=== PATIENT | male | born 1980 | race Caucasian/White ===

== ENCOUNTER 2021-04-30 21:49 | Emergency (ER) | payer MEDICAID ==
[~2021-04-30] VITALS: Ht 167.6 cm; Wt 60.0 kg
[2021-04-30] MEDS ORDERED: LORazepam 2 MG/ML, 1ML ONE (21:58)
[2021-04-30] MEDS ORDERED: DIPHENHYDRAMINE 50 MG/ML, 1ML ONE (21:58)
[2021-04-30] MEDS ORDERED: HALOPERIDOL 5 MG/ML ONE (21:58)
[2021-04-30] MEDS ORDERED: HALOPERIDOL 5 MG/ML IM ONE (22:00)
[2021-04-30] MEDS ORDERED: PLEASE ENTER ALLERGIES MC SCH (22:00)
[2021-04-30] MEDS ORDERED: PLEASE ENTER HEIGHT AND WEIGHT MC SCH (22:00)
[2021-04-30] MEDS ORDERED: DIPHENHYDRAMINE 50 MG/ML, 1ML IM ONE (22:00)
[2021-04-30] MEDS ORDERED: LORazepam 2 MG/ML, 1ML IM ONE (22:00)
[2021-04-30 22:07] LABS: BASOPHILS % (AUTO) 0 % (0-1); EOSINOPHILS % (AUTO) 0 % (1-7); LYMPHOCYTES % (AUTO) 15 % (22-44); MEAN CORPUSCULAR HEMOGLOBIN 32.6 pg (27.5-34.5); MEAN CORPUSCULAR HGB CONC 33.7 g/dL (33.2-36.2); MEAN PLATELET VOLUME 7.2 fL (7.4-10.4); MONOCYTES % (AUTO) 10 % (2-9); NEUTROPHILS % (AUTO) 75 % (42-75); PLATELET COUNT 656 x10^3/uL (130-400); RED BLOOD COUNT 4.08 x10^6/uL (4.38-5.82); RED CELL DISTRIBUTION WIDTH 14.2 % (9.4-14.8)
[2021-04-30 22:20] LABS: ALANINE AMINOTRANSFERASE 91 U/L (12-78); ALBUMIN 3.9 g/dL (3.4-5.0); ANION GAP 11 mmol/L (5-15); CHLORIDE 106 mmol/L (98-107); CREATININE 0.98 mg/dL (0.7-1.3)
[2021-04-30 22:22] LABS: ALKALINE PHOSPHATASE 82 U/L (45-117); BILIRUBIN,TOTAL 0.5 mg/dL (0.2-1.0); TOTAL PROTEIN 8.2 g/dL (6.4-8.2)
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
[2021-04-30 22:29] LABS: SALICYLATE LEVEL < 1.7 mg/dL (2.8-20.0)
--- NOTE | 2021-04-30 22:30 | NUR ---
THIS RN WAS ABLE TO TALK PT INTO GETTING INTO A GOWN. PT PLACED ALL HIS CLOTHS INTO HIS BACKPACK AND GAVE THIS RN HIS SHOES. THIS RN PLACED SHOES INTO A PATIENT BELONGING BAG AND TOOK THAT BAG ALONG WITH HIS BACKPACK TO BE LOCKED IN THE CABINET IN TUB LABELLED ROOM 38. PT EATING A PEANUT BUTTER AND JELLY SANDWICH WITH MILK. SITTER AT BEDSIDE.
[2021-04-30 22:33] LABS: AMPHETAMINE SCREEN, URINE Positive (Negative); BARBITURATE SCREEN, URINE Negative (Negative); BENZODIAZEPINE SCREEN, URINE Negative (Negative); CANNABINOID SCREEN, URINE Negative (Negative); COCAINE SCREEN, URINE Negative (Negative); METHADONE SCREEN, URINE Negative (Negative); OPIATE SCREEN, URINE Negative (Negative)
--- NOTE | 2021-04-30 23:21 | NUR ---
PT RESTING ON GURNEY, DENIES NEEDS AT THIS TIME, SITTER AT BEDSIDE, ROOM SECURED.
--- NOTE | 2021-05-01 00:10 | NUR ---
PT RESTING ON GURNEY, DENIES NEEDS AT THIS TIME, SITTER AT BEDSIDE, ROOM SECURED.
--- NOTE | 2021-05-01 01:36 | NUR ---
PT RESTING ON GURNEY, DENIES NEEDS AT THIS TIME, SITTER AT BEDSIDE, ROOM SECURED.
--- NOTE | 2021-05-01 02:15 | NUR ---
PT RESTING ON GURNEY, DENIES NEEDS AT THIS TIME, SITTER AT BEDSIDE, ROOM SECURE.
--- NOTE | 2021-05-01 03:30 | NUR ---
PT RESTING ON GURNEY, DENIES NEEDS AT THIS TIME, SITTER AT BEDSIDE, ROOM SECURE.
--- NOTE | 2021-05-01 04:20 | NUR ---
PT RESTING ON GURNEY, DENIES NEEDS AT THIS TIME, SITTER AT BEDSIDE, ROOM SECURE.
[2021-05-01 04:47] VITALS: BP 106/69
--- NOTE | 2021-05-01 06:27 | NUR ---
PT RESTING ON GURNEY, DENIES NEEDS AT THIS TIME, SITTER AT BEDSIDE, ROOM SECURE.
--- NOTE | 2021-05-01 06:52 | NUR ---
Report from Alesia BARRON. Pt resting in bed with eyes closed, resp even and unlabored, NADN. Room is secured, sitter within eyesight of pt, all safety measures observed.
--- NOTE | 2021-05-01 07:01 | NUR ---
Breakfast tray ordered for pt.
--- NOTE | 2021-05-01 07:11 | NUR ---
PACKET FAXED TO [facility]. AWAITING PLACEMENT.
--- NOTE | 2021-05-01 07:50 | NUR ---
PT ACCEPTED BY DR. CRONIN AND MISHA, RN @ [facility]. [facility] CONTACTED TO ARRANGE TRANSPORT, PT NOT ABLE TO BE LOCATED IN THEIR SYSTEM. TRANSFER REQUEST FAXED TO [facility].
--- NOTE | 2021-05-01 08:20 | NUR ---
SPOKE WITH ELIE AT [facility] DISP[facility], TRANSPORT TO [facility] ARRANGED FOR ETA OF 0900.
--- NOTE | 2021-05-01 08:31 | NUR ---
Meal tray delivered to pt with SI precautions. Pt continues resting in bed, NADN.
--- NOTE | 2021-05-01 08:37 | NUR ---
Report called to Mannie BARRON at [facility]. [facility] ETA 0900 for pt transport.
--- NOTE | 2021-05-01 09:25 | NUR ---
Pt continues resting in bed, NADN. Report to Becky BARRON.
--- NOTE | 2021-05-01 09:28 | NUR ---
REPORT FROM BEATRICE HOWE.
--- NOTE | 2021-05-01 10:44 | NUR ---
BELONGINGS RELEASED TO [facility]. REPORT TO [facility] CORT[facility]S.
== END 2021-05-01 10:47 ==
LOC: ED 21:54 → UNDOADMOB 05-01 01:28 → EDIP 05-01 01:28 → ED 05-01 10:47
DX: F15.150 Other stimulant abuse with stimulant-induced psychotic disorder with delusions (principal); F20.0 Paranoid schizophrenia; F48.2 Pseudobulbar affect
CPT/HCPCS: 36415; 80053; 80299; 80307; 80320; 80329; 85025; 96372; 99285; J1200; J1630; J2060; G0480

== ENCOUNTER 2021-06-28 09:33 | Emergency (ER) | payer MEDICAID ==
[~2021-06-28] VITALS: Ht 180.3 cm; Wt 66.9 kg
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
[2021-06-28] MEDS ORDERED: DEXTROSE 50%, 50ML SYRINGE ONE (09:47)
[2021-06-28] MEDS ORDERED: DEXTROSE 50%, 50ML SYRINGE IVPush ONE (10:00)
[2021-06-28] MEDS ORDERED: SODIUM CHLORIDE 0.9% 1,000ML IVBOLUS ONE ×2 (10:00)
--- NOTE | 2021-06-28 10:00 | NUR ---
Dr Duarte has been to bedside for eval unable to get a pulse ox reading as pt is too cold at this time. pt is awake and speaking. answering questions and following commands. denies SOB pt has been found to be hypoglycemic and has been medicated pt wet underwear removed and pt has been covered with waming blanket, additional warm blankets and RT at bedside to initiate heated humidified O2
--- NOTE | 2021-06-28 10:05 | NUR ---
pt has NS running on hotline tubing for re-warming
[2021-06-28 10:17] LABS: ANION GAP 19 mmol/L (5-15); CALCIUM 9.8 mg/dL (8.5-10.1); CHLORIDE 103 mmol/L (98-107)
[2021-06-28 10:28] LABS: RED BLOOD COUNT 4.77 x10^6/uL (4.38-5.82)
[2021-06-28 10:29] LABS: MEAN CORPUSCULAR HEMOGLOBIN 32.5 pg (27.5-34.5); MEAN CORPUSCULAR HGB CONC 33.7 g/dL (33.2-36.2); PLATELET COUNT 349 x10^3/uL (130-400); RED CELL DISTRIBUTION WIDTH 13.6 % (9.4-14.8)
--- NOTE | 2021-06-28 10:33 | NUR ---
pt is dozing intermittently. RT has been to bedside attempting to get SaO2 reading
[2021-06-28 10:42] LABS: <PLATELET ESTIMATE> ADEQUATE; <PLT MORPHOLOGY> NORMAL PLT MORPH; <RBC MORPHOLOGY> NORMAL; BAND#(MANUAL) 1.61 x10^3/uL; BANDS%(MANUAL) 5 % (0-7); LYMPH#(MANUAL) 1.93 x10^3/uL (1-3.4); LYMPHS% (MANUAL) 6 % (22-44); METAMYELOCYTES# (MANUAL) 0.32 x10^3/uL (0-0); METAMYELOCYTES% (MANUAL) 1 % (0-1); MONOS#(MANUAL) 3.53 x10^3/uL (0.3-2.7); MONOS% (MANUAL) 11 % (2-9); PMNS WITH VACUOLES 1+; SEG#(MANUAL) 24.72 x10^3/uL (1.8-6.8); SEGS% (MANUAL) 77 % (42-75)
[2021-06-28 10:43] LABS: CREATININE 2.29 mg/dL (0.7-1.3)
--- NOTE | 2021-06-28 11:08 | NUR ---
pt dozing intermittently, report to Reanna BARRON
--- NOTE | 2021-06-28 11:12 | NUR ---
REPORT RECEIVED, CARE ASSUMED. PT DOZING INTERMITTENTLY, AROUSES EASILY. STATES "FEELING WARMER, NOT SHIVERING ANYMORE" ST PER MONITOR. MIK HUGGER IN PLACE. RECEIVING WARMED HUMIDIFIED OXYGEN. NO NEEDS EXPRESSED AT THIS TIME.
--- NOTE | 2021-06-28 11:15 | NUR ---
SODIUM BICARB 150MEQ IN D5W REQUESTED FROM PHARMACY
[2021-06-28] MEDS ORDERED: SODIUM BICARB 8.4%,50ML SYR. 150 MEQ in DEXTROSE 5% 1,000 ML IV SCH (11:30)
--- NOTE | 2021-06-28 11:35 | NUR ---
DISCUSSED WITH DR ROMANO, PT PULLING OXYGEN OFF, PULLING AT BLANKETS. "ITS HOT" ORAL TEMP 98.5. ST PER MONITOR. PT USED URINAL 400CC BROWN URINE. IV FLUIDS INFUSING ORDERED.
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
[2021-06-28 12:03] LABS: AMPHETAMINE SCREEN, URINE Positive (Negative); BARBITURATE SCREEN, URINE Negative (Negative); BENZODIAZEPINE SCREEN, URINE Negative (Negative); CANNABINOID SCREEN, URINE Negative (Negative); COCAINE SCREEN, URINE Negative (Negative); METHADONE SCREEN, URINE Negative (Negative); OPIATE SCREEN, URINE Negative (Negative)
[2021-06-28 12:17] LABS: CREATINE KINASE, TOTAL 45716 U/L (39-308)
[2021-06-28 12:40] LABS: MICROSCOPIC INDICATED
[2021-06-28 12:44] VITALS: BP 99/60
--- NOTE | 2021-06-28 12:44 | NUR ---
PT SITTING AT END OF GURNEY EATING. PT DRANK 750MLS OF WATER. IV INFUSING WITHOUT REDNESS/SWELLING. ST PER MONITOR. PT AWARE OF WAITING OF ADMIT ROOM. PT STATES. "I DONT LIKE THIS ROOM, I GET CLAUSTROPHOBIC AND ITS JUST MY PERSONALITY TO JUST WALK OUT OF HERE" ENC PT NOT TO DO THAT. MD WANTS HIM TO STAY AND BE OBSERVED OVER NIGHT. VERBALIZES UNDERSTANDING BUT AGAIN STATES "THATS JUST MY PERSONALITY"
[2021-06-28] MEDS ORDERED: OLANZAPINE ODT 10MG PO ONE (13:00)
[2021-06-28] MEDS ORDERED: OLANZAPINE 10 MG TABLET ONE (13:03)
--- NOTE | 2021-06-28 13:05 | NUR ---
DISCUSSED WITH DR ORTIZ, PT ELEVATED WBC, POTENTIAL FOR SEPSIS. PER , "NOT SEPTIC, CONCERN WITH RHABODOMYALISIS AND METH USE.
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
[2021-06-28] MEDS ORDERED: ACETAMINOPHEN 325 MG TABLET PO PRN (13:30)
[2021-06-28] MEDS ORDERED: METOCLOPRAMIDE 5 MG/ML, 2ML IVPush PRN (13:30)
[2021-06-28] MEDS ORDERED: hydrALAzine 20 MG/ML, 1ML IVPush PRN (13:30)
[2021-06-28] MEDS ORDERED: GABAPENTIN 300 MG CAPSULE PO PRN (13:30)
[2021-06-28] MEDS ORDERED: DIPHENHYDRAMINE 25 MG CAPSULE PO PRN (13:30)
[2021-06-28] MEDS ORDERED: HYDROcodone/APAP 5/325 TABLET PO PRN (13:30)
[2021-06-28] MEDS ORDERED: METHOCARBAMOL 500 MG TABLET PO PRN (13:30)
[2021-06-28] MEDS ORDERED: SODIUM BICARBONATE 8.4% 150 MEQ in DEXTROSE 5% 1,000 ML IV SCH (13:30)
[2021-06-28] MEDS ORDERED: ONDANSETRON ODT 4 MG PO PRN (13:30)
[2021-06-28] MEDS ORDERED: ONDANSETRON 2MG/ML, 2ML IVPush PRN (13:30)
[2021-06-28] MEDS ORDERED: LABETALOL 5MG/ML, 20ML IVPush PRN (13:30)
--- NOTE | 2021-06-28 13:34 | NUR ---
PT MOVED TO ED 17, REPORT FROM VIRGINIA BARRON
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
[2021-06-28] MEDS ORDERED: HEPARIN 5,000 UNITS/ML, 1ML SQ SCH (14:00)
--- NOTE | 2021-06-28 14:00 | NUR ---
PT CONT TO COME OUT OF ROOM WANTING TO LEAVE. DR ROMANO AWARE, IV IN RAC DC'D WITH CANNULA INTACT. PT PROVIDED CLOTHING, PT LEFT AMB, GAIT STEADY.
== END 2021-06-28 14:03 ==
LOC: ED 12:28 → SUATTDRO 13:09 → ED 13:57 → UNDOADMIN 06-29 06:45 → EDIP 06-29 06:45
PROVIDERS: ATTEND Hospitalist
DX: E87.5 Hyperkalemia (principal); N17.9 Acute kidney failure, unspecified; E87.2 Acidosis; M62.82 Rhabdomyolysis; T68.XXXA Hypothermia, initial encounter; F15.10 Other stimulant abuse, uncomplicated; F22 Delusional disorders; F17.200 Nicotine dependence, unspecified, uncomplicated
CPT/HCPCS: 36415; 80048; 80307; 80320; 81001; 82550; 82962; 83735; 85025; 96361; 96365; 96366; 96375; 99284; J7030; J7070; G0480

== ENCOUNTER 2021-06-28 14:12 | Inpatient (IN) | payer MEDICAID ==
[~2021-06-28] VITALS: Ht 180.3 cm; Wt 97.7 kg
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
[2021-06-28] MEDS: D5%-0.9% NACL 1,000 ML IV SCH ×2 (15:00→21:40)
[2021-06-28] MEDS ORDERED: LORazepam 2 MG/ML, 1ML IVPush ONE (15:00)
[2021-06-28] MEDS ORDERED: LORazepam 2 MG/ML, 1ML ONE (15:16)
--- NOTE | 2021-06-28 15:26 | NUR ---
PT ASLEEP WITH EVEN AND UNLABORED RESPRIATIONS. VSHelena. PRADEEP.
[2021-06-28] MEDS ORDERED: ONDANSETRON 2MG/ML, 2ML IVPush PRN (17:00)
[2021-06-28] MEDS ORDERED: ONDANSETRON ODT 4 MG PO PRN (17:00)
[2021-06-28] MEDS ORDERED: hydrALAzine 20 MG/ML, 1ML IVPush PRN (17:00)
[2021-06-28] MEDS ORDERED: ACETAMINOPHEN 325 MG TABLET PO PRN (17:00)
--- NOTE | 2021-06-28 18:42 | NUR ---
report called to kvng srinivasan
--- NOTE | 2021-06-28 18:55 | NUR ---
RECIEVED REPORT FROM BEATRICE ARREOLA. PATIENT RESTING ON GURNEY AWAITING TRASPORT UPSTAIRS. NAD AT THIS TIME
--- NOTE | 2021-06-28 19:38 | NUR ---
ASSISSTED PATIENT TO BATHROOM, PATINET AMBULATED WITH A STEADY GAIT, PATIENT ASSISTED BACK TO ROOM AND CONNECTED BACK TO MONITOR. LEYDI AT THIS TIME.
[2021-06-28] MEDS: SODIUM BICARBONATE 8.4% 150 MEQ in DEXTROSE 5% 1,000 ML IV SCH (22:21)
[2021-06-28] MEDS: HEPARIN 5,000 UNITS/ML, 1ML SQ SCH (22:22)
[2021-06-28] MEDS: GABAPENTIN 300 MG CAPSULE PO PRN (22:25)
[2021-06-29 04:00] VITALS: BP 98/61
[2021-06-29] MEDS: SODIUM BICARBONATE 8.4% 150 MEQ in DEXTROSE 5% 1,000 ML IV SCH ×3 (05:12→20:19)
[2021-06-29 05:20] VITALS: BP 98/61
[2021-06-29] MEDS: HEPARIN 5,000 UNITS/ML, 1ML SQ SCH ×3 (05:55→22:22)
[2021-06-29 08:48] VITALS: BP 99/60
[2021-06-29] MEDS: HYDROcodone/APAP 5/325 TABLET PO PRN ×2 (09:58→20:18)
[2021-06-29 11:39] LABS: CALCIUM 7.8 mg/dL (8.5-10.1); CREATININE 0.89 mg/dL (0.7-1.3)
[2021-06-29 11:55] LABS: ANION GAP 5 mmol/L (5-15); CHLORIDE 106 mmol/L (98-107)
[2021-06-29 12:28] LABS: CREATINE KINASE, TOTAL 28160 U/L (39-308)
[2021-06-29 14:46] VITALS: BP 97/73
[2021-06-29 18:46] VITALS: BP 100/65
[2021-06-29] MEDS: GABAPENTIN 300 MG CAPSULE PO PRN (22:22)
[2021-06-30 01:07] VITALS: BP 98/69
[2021-06-30] MEDS: SODIUM BICARBONATE 8.4% 150 MEQ in DEXTROSE 5% 1,000 ML IV SCH ×4 (04:54→22:23)
[2021-06-30 05:55] LABS: ANION GAP 2 mmol/L (5-15); CALCIUM 8.4 mg/dL (8.5-10.1); CHLORIDE 103 mmol/L (98-107)
[2021-06-30] MEDS: HEPARIN 5,000 UNITS/ML, 1ML SQ SCH ×3 (05:57→22:22)
[2021-06-30] MEDS: HYDROcodone/APAP 5/325 TABLET PO PRN ×3 (05:57→19:55)
[2021-06-30 06:29] LABS: CREATININE 0.89 mg/dL (0.7-1.3)
[2021-06-30 07:11] LABS: CREATINE KINASE, TOTAL 22656 U/L (39-308)
[2021-06-30 07:42] VITALS: BP 108/70
[2021-06-30 12:42] VITALS: BP 114/77
[2021-06-30 19:38] VITALS: BP 121/83
[2021-06-30] MEDS: GABAPENTIN 300 MG CAPSULE PO PRN (22:23)
[2021-07-01 00:56] VITALS: BP 114/84
[2021-07-01] MEDS: SODIUM BICARBONATE 8.4% 150 MEQ in DEXTROSE 5% 1,000 ML IV SCH ×4 (05:08→22:29)
[2021-07-01] MEDS: HEPARIN 5,000 UNITS/ML, 1ML SQ SCH ×3 (06:04→22:22)
[2021-07-01] MEDS: HYDROcodone/APAP 5/325 TABLET PO PRN ×3 (06:05→20:39)
[2021-07-01 07:00] VITALS: BP 134/96
[2021-07-01 13:05] VITALS: BP 107/73
[2021-07-01 14:18] VITALS: BP 121/82
[2021-07-01 21:11] VITALS: BP 112/78
[2021-07-01] MEDS: GABAPENTIN 300 MG CAPSULE PO PRN (22:22)
[2021-07-02 01:54] VITALS: BP 110/74
[2021-07-02] MEDS: SODIUM BICARBONATE 8.4% 150 MEQ in DEXTROSE 5% 1,000 ML IV SCH ×3 (05:27→16:57)
[2021-07-02] MEDS: HYDROcodone/APAP 5/325 TABLET PO PRN ×3 (05:28→19:38)
[2021-07-02] MEDS: HEPARIN 5,000 UNITS/ML, 1ML SQ SCH ×3 (05:28→21:57)
[2021-07-02 09:00] VITALS: BP 122/82
[2021-07-02 14:26] VITALS: BP 119/66
[2021-07-02 18:48] VITALS: BP 125/80
[2021-07-03 00:33] VITALS: BP 130/80
[2021-07-03] MEDS: SODIUM BICARBONATE 8.4% 150 MEQ in DEXTROSE 5% 1,000 ML IV SCH ×3 (00:44→13:08)
[2021-07-03] MEDS: HEPARIN 5,000 UNITS/ML, 1ML SQ SCH ×2 (06:16→13:35)
[2021-07-03 08:52] VITALS: BP 124/84
[2021-07-03] MEDS: HYDROcodone/APAP 5/325 TABLET PO PRN (13:12)
[2021-07-03 13:35] VITALS: BP 136/94
== END 2021-07-03 16:09 | disposition left against medical advice (07) | DRG 557 ==
LOC: ED 15:34 → EDIP 17:42 → 4WST 19:55
PROVIDERS: ADMIT Hospitalist; ATTEND Family Medicine
DX: M62.82 Rhabdomyolysis (principal); N17.0 Acute kidney failure with tubular necrosis; E87.2 Acidosis; E16.2 Hypoglycemia, unspecified; E87.5 Hyperkalemia; F10.10 Alcohol abuse, uncomplicated; F17.200 Nicotine dependence, unspecified, uncomplicated; F15.10 Other stimulant abuse, uncomplicated; F41.1 Generalized anxiety disorder; R56.9 Unspecified convulsions; R68.0 Hypothermia, not associated with low environmental temperature; F19.10 Other psychoactive substance abuse, uncomplicated; Z53.29 Procedure and treatment not carried out because of patient's decision for other reasons
CPT/HCPCS: 36415; 96374; 99285; J7042; 71045; 80048; 82550; 82962; 93005; G0378; J1644; J7070; J2060